=== PATIENT | female | born 1990 | race Caucasian/White ===

== ENCOUNTER → 2019-08-22 19:30 | Outpatient (CLI) | payer OTHER, SELFPAY | PROVIDERS: Visit Provider Physician Assistant | DX: J02.9 Acute pharyngitis, unspecified (principal) | CPT/HCPCS: 87070 ==

== ENCOUNTER 2019-09-07 15:15 | Emergency (ER) | payer OTHER, SELFPAY ==
[2019-09-07 15:35] VITALS: BP 137/86; PULSE 107; RESP 13; TEMP 36.9; O2SAT 98
--- NOTE | 2019-09-07 16:13 | DI.RAD.S_ITS ---
PROCEDURE: XR CHEST 2V INDICATIONS: cough x 5 weeks TECHNIQUE: 2 views of the chest were acquired. COMPARISON: None. FINDINGS: Surgical changes and devices: None. Lungs and pleura: Mildly increased focal vascular markings and bilateral hilar region are seen with mild bronchial wall thickening. No focal infiltrate. No pleural effusions or pneumothorax. Mediastinum: Mediastinal contours are normal. Heart size is normal. Bones and chest wall: No suspicious bony abnormalities. Soft tissues appear unremarkable. IMPRESSION: Suggestion of mild reactive airway disease. No focal infiltrate. Dictated by: Ronald Leonardo M.D. on 09/07/2019 at 17:03 Approved by: Ronald Leonardo M.D. on 09/07/2019 at 17:05
[2019-09-07 16:37] LABS: INR 0.9 (0.9-1.3); Prothrombin Time 10.3 SECONDS (10.1-12.7)
[2019-09-07 16:40] LABS: PTT Partial Thromboplastin Tim 32 SECONDS (26.4-36.2)
[2019-09-07 16:41] LABS: Creatine Kinase 43 U/L (30-135)
[2019-09-07 16:42] LABS: Alanine Aminotransferase 17 IU/L (<35); Albumin 4.5 g/dL (3.5-5.0); Albumin Globulin Ratio 1.6 (1.0-2.8); Alkaline Phosphatase 67 U/L (38-126); Aspartate Aminotransferase 22 IU/L (14-36); BUN Creatinine Ratio 17.1 (6-22); Bilirubin Total 0.4 mg/dL (0.2-1.3); Blood Urea Nitrogen 12 mg/dL (7-17); Calcium 9.5 mg/dL (8.4-10.2); Carbon Dioxide 28 mmol/L (22-32); Chloride 104 mmol/L (98-107); Estimated Glomerular Filt Rate > 60.0 mL/min (>60); Globulin 2.8 g/dL (1.7-4.1); Glucose 92 mg/dL (70-100); HEMOLYSIS < 15 (0-50); Sodium 141 mmol/L (137-145); Total Protein 7.3 g/dL (6.3-8.2)
[2019-09-07 16:48] LABS: B Type Natriuretic Peptide < 100 (<100); D Dimer < 200 ng/mL (<230)
[2019-09-07 16:54] LABS: Troponin I < 0.012 ng/mL (0.01-0.034)
[2019-09-07 16:57] LABS: Add Manual Diff / Slide Review NO; Basophils Absolute Auto 100 /uL (0-100); Basophils Percent Auto 0.7 % (0-2); Eosinophils Absolute Auto 200 /uL (0-450); Eosinophils Percent Auto 2.1 % (2-4); Hematocrit 38.7 % (36-46); Hemoglobin 13.1 g/dL (12.0-16.0); Lymphocytes Absolute Auto 2300 /uL (1100-4500); Lymphocytes Percent Auto 23.5 % (25-40); Mean Corpuscular Hemoglobin 30.6 PG (26-34); Mean Corpuscular Volume 90.1 fL (80-100); Monocytes Absolute Auto 700 /uL (0-900); Monocytes Percent Auto 7.6 % (3-14); Neutrophils Absolute Auto 6400 /uL (1500-7000); Neutrophils Percent Auto 66.1 % (50-75); Platelet Count 303 X10^3/uL (150-400); Red Blood Cell Count 4.29 X10^6/uL (4.0-5.2); Red Cell Distribution Width 13.3 % (11.6-14.8); White Blood Cell Count 9.7 X10^3/uL (4.5-11.0)
[2019-09-07 17:10] LABS: Influenza A - CEPHEID Flu A NEGATIVE (NEGATIVE); Influenza B - CEPHEID Flu B NEGATIVE (NEGATIVE)
[2019-09-07 17:44] LABS: Thyroid Stimulating Hormone 1.81 uIU/mL (0.47-4.68)
[2019-09-07 18:31] VITALS: PULSE 88; O2SAT 98
[2019-09-07] MEDS: ALBUTEROL 2.5 MG/3 ML NEB (ADULT) INH (18:31)
[2019-09-07 19:13] VITALS: BP 125/82
--- NOTE | 2019-09-07 19:29 | ED.CHESTPAIN ---
HPI - Chest Pain <SHANNAN Monaco- - Last Filed: 09/07/19 19:35> General Chief Complaint: Chest Pain Stated Complaint: short of breath, chest tightness, bilat arm heavin Time Seen by Provider: 09/07/19 15:56 Source: patient and family Mode of arrival: Ambulatory Limitations: no limitations History of Present Illness HPI narrative: The patient is a 29-year-old female nonsmoker who denies any history of asthma or COPD who presents with a chief complaint of shortness of breath, heavy arms, palpitations at home. She states that she has had a cough and illness for 4-5 weeks. She did tele health program, was started on antibiotics. Then she did not feel any better, so she went to the walk-in clinic. She completed a course of Augmentin, prednisone. She states she was also on amoxicillin prior, and given an inhaler. She states she used to have swollen throat, sore throat ear pain. Swollen sore throat and ear pain has improved greatly. She states she has tested negative for strep. She presents because she still has shortness of breath, new onset of heavy arms, and palpitations at home. She is concerned about her thyroid. She saw her PCP yesterday. She is having lab work drawn tomorrow. Related Data Home Medications Medication Instructions Recorded Confirmed No Known Home Medications 09/07/19 09/07/19 Allergies Allergy/AdvReac Type Severity Reaction Status Date / Time No Known Drug Allergies Allergy Unverified 08/22/19 18:43 Review of Systems <MAGAN Monaco - Last Filed: 09/07/19 19:35> Review of Systems Narrative: GENERAL: Denies chills, fatigue, malaise, fever, sweats. HEENT: Denies sinus pain, ear pain, sore throat, difficulty swallowing, dizziness. RESPIRATORY: See HPI CARDIOVASCULAR: See HPI GASTROINTESTINAL: Denies nausea, vomiting, abdominal pain, diarrhea, constipation, melena. : Denies dysuria, frequency, incontinence, hematuria, urinary retention. MUSCULOSKELETAL: denies weakness, joint pain, or bony pain SKIN: Denies rash, skin lesions, or other NEUROLOGIC: Denies weakness, headache, numbness, change in speech, confusion, seizures, incoordination. PSYCHIATRIC: No concerning psychosocial issues. 12 point review of systems is negative except for those stated above Patient History <DEYVI Monaco - Last Filed: 09/07/19 19:35> Social History Smoking Status: Never smoker Smoking Status: Never smoker Substance Use Type: does not use Exam <DEYVI Monaco - Last Filed: 09/07/19 19:35> Narrative Exam Narrative: GENERAL: This is a well-nourished, well-developed patient, in no acute distress HEAD: Atraumatic. Normocephalic. No temporal or scalp tenderness. EYES: Pupils equal round and reactive. Extraocular motions intact. No scleral icterus. No injection or drainage. ENT: Nose without bleeding, purulent drainage or septal hematoma. Throat without erythema, tonsillar hypertrophy or exudate. Uvula midline. Airway patent. NECK: Trachea midline. No JVD or lymphadenopathy. Supple, nontender, no meningeal signs. CARDIOVASCULAR: Regular rate and rhythm without murmurs, gallops, or rubs. RESPIRATORY: Dry cough on exam. Breath sounds course bilaterally bilaterally. No wheezes, rales, or rhonchi. No cough. No increased respiratory effort. No accessory muscle use. GASTROINTESTINAL: Abdomen soft, non-tender, nondistended. No hepato-splenomegaly, or palpable masses. No guarding. EXTREMITIES: No clubbing, cyanosis, or edema. No joint tenderness, effusion, or edema noted. BACK: Nontender without deformity or crepitance. No flank tenderness. NEURO: AOx3. SKIN: No rash or erythema on visible skin Initial Vital Signs Initial Vital Signs: Vital Signs Temperature 98.4 F 09/07/19 15:35 Pulse Rate 107 H 09/07/19 15:35 Respiratory Rate 13 09/07/19 15:35 Blood Pressure 137/86 09/07/19 15:35 Pulse Oximetry 98 09/07/19 15:35 <Donna Rodriguez MD - Last Filed: 09/07/19 19:36> Initial Vital Signs Initial Vital Signs: Vital Signs Temperature 98.4 F 09/07/19 15:35 Pulse Rate 107 H 09/07/19 15:35 Respiratory Rate 13 09/07/19 15:35 Blood Pressure 137/86 09/07/19 15:35 Pulse Oximetry 98 09/07/19 15:35 Scores <DEYVI Monaco - Last Filed: 09/07/19 19:35> GCS [place] coma scale eye opening: Spontaneous [place] coma scale verbal response: Orientated [place] coma scale motor response: Obey commands [place] coma scale total score: 15 Course <DEYVI Monaco - Last Filed: 09/07/19 19:35> Orders Ordered: ED Orders 09/07/19 16:13 XR chest 2V Stat 09/07/19 16:21 B Type Natriuretic Peptide Stat Complete Blood Count AUTO DIFF Stat Comprehensive Metabolic Panel Stat D Dimer Stat Partial Thromboplastin Time Stat Prothrombin Time INR Stat Thyroid Stimulating Hormone Stat Troponin & CK Cardiac Panel Stat 09/07/19 16:30 Influenza A & B (PCR) Stat 09/07/19 17:24 RT Consult Eval and Treat NOW Discontinued Medications Albuterol (Ventolin) 2.5 mg INH NOW ONE Stop: 09/07/19 17:30 Last Admin: 09/07/19 18:31 Dose: 2.5 mg Documented by: STHOMP Vital Signs Vital signs: Vital Signs - 8 hr 09/07/19 15:35 09/07/19 18:31 09/07/19 19:13 Temperature 98.4 F Pulse Rate 107 H 88 Respiratory Rate 13 Blood Pressure 137/86 125/82 Pulse Oximetry 98 98 <Donna Rodriguez MD - Last Filed: 09/07/19 19:36> Orders Ordered: ED Orders 09/07/19 16:13 XR chest 2V Stat 09/07/19 16:21 B Type Natriuretic Peptide Stat Complete Blood Count AUTO DIFF Stat Comprehensive Metabolic Panel Stat D Dimer Stat Partial Thromboplastin Time Stat Prothrombin Time INR Stat Thyroid Stimulating Hormone Stat Troponin & CK Cardiac Panel Stat 09/07/19 16:30 Influenza A & B (PCR) Stat 09/07/19 17:24 RT Consult Eval and Treat NOW Discontinued Medications Albuterol (Ventolin) 2.5 mg INH NOW ONE Stop: 09/07/19 17:30 Last Admin: 09/07/19 18:31 Dose: 2.5 mg Documented by: STHOMP Vital Signs Vital signs: Vital Signs - 8 hr 09/07/19 15:35 09/07/19 18:31 09/07/19 19:13 Temperature 98.4 F Pulse Rate 107 H 88 Respiratory Rate 13 Blood Pressure 137/86 125/82 Pulse Oximetry 98 98 MDM - Chest Pain <Nicki Hoffman, ENGINEERING PROGRAM ANALYST- - Last Filed: 09/07/19 19:35> Lab Data Result diagrams: 09/07/19 16:21 09/07/19 16:21 Labs: Lab Results 09/07/19 09/07/19 09/07/19 Range/Units 16:21 16:21 16:21 WBC 9.7 (4.5-11.0) X10^3/uL RBC 4.29 (4.0-5.2) X10^6/uL Hgb 13.1 (12.0-16.0) g/dL Hct 38.7 (36-46) % MCV 90.1 (80-100) fL MCH 30.6 (26-34) PG MCHC 34.0 (30-36) % RDW 13.3 (11.6-14.8) % Plt Count 303 (150-400) X10^3/uL Neut % (Auto) 66.1 (50-75) % Lymph % (Auto) 23.5 L (25-40) % Dillon % (Auto) 7.6 (3-14) % Eos % (Auto) 2.1 (2-4) % Baso % (Auto) 0.7 (0-2) % Neut # (Auto) 6400 (5464-7953) /uL Lymph # (Auto) 2300 (6145-8384) /uL Dillon # (Auto) 700 (0-900) /uL Eos # (Auto) 200 (0-450) /uL Baso # (Auto) 100 (0-100) /uL PT 10.3 (10.1-12.7) SECONDS INR 0.9 (0.9-1.3) APTT 32 (26.4-36.2) SECONDS D-Dimer < 200 (<230) ng/mL Sodium 141 (137-145) mmol/L Potassium 4.0 (3.4-5.1) mmol/L Chloride 104 (98-107) mmol/L Carbon Dioxide 28 (22-32) mmol/L BUN 12 (7-17) mg/dL Creatinine 0.70 (0.52-1.04) mg/dL Estimated GFR > 60.0 (>60) mL/min BUN/Creatinine Ratio 17.1 (6-22) Glucose 92 (70-100) mg/dL Calcium 9.5 (8.4-10.2) mg/dL Total Bilirubin 0.4 (0.2-1.3) mg/dL AST 22 (14-36) IU/L ALT 17 (<35) IU/L Alkaline Phosphatase 67 (38-126) U/L Total Creatine Kinase (30-135) U/L CK-MB (CK-2) CK-MB (CK-2) Rel Index Troponin I (0.01-0.034) ng/mL B-Natriuretic Peptide < 100 (<100) Total Protein 7.3 (6.3-8.2) g/dL Albumin 4.5 (3.5-5.0) g/dL Globulin 2.8 (1.7-4.1) g/dL Albumin/Globulin Ratio 1.6 (1.0-2.8) TSH (0.47-4.68) uIU/mL Influenza A (RT-PCR) (NEGATIVE) Influenza B (RT-PCR) (NEGATIVE) 09/07/19 09/07/19 09/07/19 Range/Units 16:21 16:21 16:30 WBC (4.5-11.0) X10^3/uL RBC (4.0-5.2) X10^6/uL Hgb (12.0-16.0) g/dL Hct (36-46) % MCV (80-100) fL MCH (26-34) PG MCHC (30-36) % RDW (11.6-14.8) % Plt Count (150-400) X10^3/uL Neut % (Auto) (50-75) % Lymph % (Auto) (25-40) % Dillon % (Auto) (3-14) % Eos % (Auto) (2-4) % Baso % (Auto) (0-2) % Neut # (Auto) (0256-8473) /uL Lymph # (Auto) (7910-3676) /uL Dillon # (Auto) (0-900) /uL Eos # (Auto) (0-450) /uL Baso # (Auto) (0-100) /uL PT (10.1-12.7) SECONDS INR (0.9-1.3) APTT (26.4-36.2) SECONDS D-Dimer (<230) ng/mL Sodium (137-145) mmol/L Potassium (3.4-5.1) mmol/L Chloride (98-107) mmol/L Carbon Dioxide (22-32) mmol/L BUN (7-17) mg/dL Creatinine (0.52-1.04) mg/dL Estimated GFR (>60) mL/min BUN/Creatinine Ratio (6-22) Glucose (70-100) mg/dL Calcium (8.4-10.2) mg/dL Total Bilirubin (0.2-1.3) mg/dL AST (14-36) IU/L ALT (<35) IU/L Alkaline Phosphatase (38-126) U/L Total Creatine Kinase 43 (30-135) U/L CK-MB (CK-2) TNP CK-MB (CK-2) Rel Index TNP Troponin I < 0.012 (0.01-0.034) ng/mL B-Natriuretic Peptide (<100) Total Protein (6.3-8.2) g/dL Albumin (3.5-5.0) g/dL Globulin (1.7-4.1) g/dL Albumin/Globulin Ratio (1.0-2.8) TSH 1.81 (0.47-4.68) uIU/mL Influenza A (RT-PCR) Flu a negative (NEGATIVE) Influenza B (RT-PCR) Flu b negative (NEGATIVE) Point of Care Testing Test Results Negative Urine Dip Bedside Urine Glucose Negative Bedside Urine Bilirubin - Negative Bedside Urine Ketone - Negative Urine Specific [place] 1.015 Bedside Urine Occult Blood - Negative Bedside Urine pH 6.0 Bedside Urine Protein - Negative Bedside Urine Urobilinogen - Negative Bedside Urine Nitrite - Negative Bedside Urine Leukocytes - Negative Esterase Imaging Data Chest x-ray: Radiologist's impression: [address] [address] XRay Report Signed Patient: Elda Bull EMR#: [id number] : 1990Acct:[id number] Age/Sex: 29 / FDate of Service: 09/07/19 Loc: ED Accession Number: [id number] Procedure: XR chest 2V Ordering Provider: Nicki Hoffman- PROCEDURE: XR CHEST 2V INDICATIONS: cough x 5 weeks TECHNIQUE: 2 views of the chest were acquired. COMPARISON: None. FINDINGS: Surgical changes and devices: None. Lungs and pleura: Mildly increased focal vascular markings and bilateral hilar region are seen with mild bronchial wall thickening. No focal infiltrate. No pleural effusions or pneumothorax. Mediastinum: Mediastinal contours are normal. Heart size is normal. Bones and chest wall: No suspicious bony abnormalities. Soft tissues appear unremarkable. IMPRESSION: Suggestion of mild reactive airway disease. No focal infiltrate. Dictated by: Ronald Leonardo M.D. on 09/07/2019 at 17:03 Approved by: Ronald Leonardo M.D. on 09/07/2019 at 17:05 [facility] Narrative Medical decision making narrative: The patient is a 29-year-old female who presents with a chief complaint of persistent cough, shortness of breath, chest pain and feeling of palpitations. She has sinus rhythm on EKG, chest x-ray shows no pneumonia. Her troponin is negative, feels though she is at low risk of ACS, given her age and low comorbidities. D-dimer is also negative at this point time. She saw her PCP yesterday, and I suggested that she needs to follow-up again with primary care provider. 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 Discussed at length that she needs further evaluation by her PCP, I discussed going back to the emergency department for any acute concerns. Patient has no questions or concerns upon discharge and states understanding of return precautions as well as follow-up care. <Donna Rodriguez MD - Last Filed: 09/07/19 19:36> Lab Data Labs: Lab Results 09/07/19 09/07/19 09/07/19 Range/Units 16:21 16:21 16:21 WBC 9.7 (4.5-11.0) X10^3/uL RBC 4.29 (4.0-5.2) X10^6/uL Hgb 13.1 (12.0-16.0) g/dL Hct 38.7 (36-46) % MCV 90.1 (80-100) fL MCH 30.6 (26-34) PG MCHC 34.0 (30-36) % RDW 13.3 (11.6-14.8) % Plt Count 303 (150-400) X10^3/uL Neut % (Auto) 66.1 (50-75) % Lymph % (Auto) 23.5 L (25-40) % Dillon % (Auto) 7.6 (3-14) % Eos % (Auto) 2.1 (2-4) % Baso % (Auto) 0.7 (0-2) % Neut # (Auto) 6400 (7284-3353) /uL Lymph # (Auto) 2300 (4905-8304) /uL Dillon # (Auto) 700 (0-900) /uL Eos # (Auto) 200 (0-450) /uL Baso # (Auto) 100 (0-100) /uL PT 10.3 (10.1-12.7) SECONDS INR 0.9 (0.9-1.3) APTT 32 (26.4-36.2) SECONDS D-Dimer < 200 (<230) ng/mL Sodium 141 (137-145) mmol/L Potassium 4.0 (3.4-5.1) mmol/L Chloride 104 (98-107) mmol/L Carbon Dioxide 28 (22-32) mmol/L BUN 12 (7-17) mg/dL Creatinine 0.70 (0.52-1.04) mg/dL Estimated GFR > 60.0 (>60) mL/min BUN/Creatinine Ratio 17.1 (6-22) Glucose 92 (70-100) mg/dL Calcium 9.5 (8.4-10.2) mg/dL Total Bilirubin 0.4 (0.2-1.3) mg/dL AST 22 (14-36) IU/L ALT 17 (<35) IU/L Alkaline Phosphatase 67 (38-126) U/L Total Creatine Kinase (30-135) U/L CK-MB (CK-2) CK-MB (CK-2) Rel Index Troponin I (0.01-0.034) ng/mL B-Natriuretic Peptide < 100 (<100) Total Protein 7.3 (6.3-8.2) g/dL Albumin 4.5 (3.5-5.0) g/dL Globulin 2.8 (1.7-4.1) g/dL Albumin/Globulin Ratio 1.6 (1.0-2.8) TSH (0.47-4.68) uIU/mL Influenza A (RT-PCR) (NEGATIVE) Influenza B (RT-PCR) (NEGATIVE) 09/07/19 09/07/19 09/07/19 Range/Units 16:21 16:21 16:30 WBC (4.5-11.0) X10^3/uL RBC (4.0-5.2) X10^6/uL Hgb (12.0-16.0) g/dL Hct (36-46) % MCV (80-100) fL MCH (26-34) PG MCHC (30-36) % RDW (11.6-14.8) % Plt Count (150-400) X10^3/uL Neut % (Auto) (50-75) % Lymph % (Auto) (25-40) % Dillon % (Auto) (3-14) % Eos % (Auto) (2-4) % Baso % (Auto) (0-2) % Neut # (Auto) (2534-6994) /uL Lymph # (Auto) (8873-3824) /uL Dillon # (Auto) (0-900) /uL Eos # (Auto) (0-450) /uL Baso # (Auto) (0-100) /uL PT (10.1-12.7) SECONDS INR (0.9-1.3) APTT (26.4-36.2) SECONDS D-Dimer (<230) ng/mL Sodium (137-145) mmol/L Potassium (3.4-5.1) mmol/L Chloride (98-107) mmol/L Carbon Dioxide (22-32) mmol/L BUN (7-17) mg/dL Creatinine (0.52-1.04) mg/dL Estimated GFR (>60) mL/min BUN/Creatinine Ratio (6-22) Glucose (70-100) mg/dL Calcium (8.4-10.2) mg/dL Total Bilirubin (0.2-1.3) mg/dL AST (14-36) IU/L ALT (<35) IU/L Alkaline Phosphatase (38-126) U/L Total Creatine Kinase 43 (30-135) U/L CK-MB (CK-2) TNP CK-MB (CK-2) Rel Index TNP Troponin I < 0.012 (0.01-0.034) ng/mL B-Natriuretic Peptide (<100) Total Protein (6.3-8.2) g/dL Albumin (3.5-5.0) g/dL Globulin (1.7-4.1) g/dL Albumin/Globulin Ratio (1.0-2.8) TSH 1.81 (0.47-4.68) uIU/mL Influenza A (RT-PCR) Flu a negative (NEGATIVE) Influenza B (RT-PCR) Flu b negative (NEGATIVE) Point of Care Testing Test Results Negative Urine Dip Bedside Urine Glucose Negative Bedside Urine Bilirubin - Negative Bedside Urine Ketone - Negative Urine Specific [place] 1.015 Bedside Urine Occult Blood - Negative Bedside Urine pH 6.0 Bedside Urine Protein - Negative Bedside Urine Urobilinogen - Negative Bedside Urine Nitrite - Negative Bedside Urine Leukocytes - Negative Esterase Discharge Plan Departure Patient Disposition: Home Clinical Impression: Breath shortness Discharge Date/Time: 09/07/19 19:13 Instructions: DI for Shortness of Breath, DI for Reactive Airway Disease-Adult Activity Restrictions/Additional Instructions: Please follow-up with primary care provider in the next few days Your chest x-ray shows no pneumonia, but is suggestive of reactive airway disease. However you react very poorly to albuterol. Please use at home if you need it... It is a smaller dose than the nebulizer we gave you today Your blood work is overall very well, with no signs of infection, heart attack, clot and a normal TSH Please come back to the emergency department for any acute concerns Prescriptions: No Action No Known Home Medications RF: 0 Referrals: Ollie Gerardo MD [Non-Staff] -
== END 2019-09-07 19:13 | disposition home or self-care (01) ==
PROVIDERS: Emergency Provider Nurse Practitioner Family
DX: R06.02 Shortness of breath (principal)
CPT/HCPCS: 36415; 71046; 80053; 81003; 81025; 82550; 83880; 84443; 84484; 85025; 85379; 85610; 85730; 87502; 93005; 93010; 94150; 94640; 99281; 99285; J7613

== ENCOUNTER → 2024-10-18 17:50 | Outpatient (CLI) | payer OTHER, SELFPAY ==
[2024-10-18 18:37] LABS: Influenza A - CEPHEID Flu A POSITIVE (NEGATIVE); Influenza B - CEPHEID Flu B NEGATIVE (NEGATIVE); Respiratory Syncytial Virus Negative (Negative)
[2024-10-18 18:39] LABS: COVID-19 CEPHEID 4-PLEX PCR POSITIVE (Negative)
== END ==
PROVIDERS: Visit Provider Nurse Practitioner Family
DX: R05.1 Acute cough (principal)
CPT/HCPCS: 0241U

== ENCOUNTER → 2024-12-18 14:12 | Outpatient (CLI) | payer OTHER, SELFPAY ==
[2024-12-18 14:42] LABS: Add Manual Diff / Slide Review NO; Basophils Absolute Auto 100 /uL (0-100); Basophils Percent Auto 0.9 % (0-2); Eosinophils Absolute Auto 200 /uL (0-450); Eosinophils Percent Auto 2.2 % (2-4); Hematocrit 38.1 % (36-46); Lymphocytes Absolute Auto 2400 /uL (1100-4500); Lymphocytes Percent Auto 25.1 % (25-40); Mean Corpuscular HGB Conc 34.2 % (30-36); Mean Corpuscular Hemoglobin 30.8 PG (26-34); Mean Corpuscular Volume 90.2 fL (80-100); Monocytes Absolute Auto 600 /uL (0-900); Neutrophils Absolute Auto 6300 /uL (1500-7000); Neutrophils Percent Auto 65.8 % (50-75); Platelet Count 310 X10^3/uL (150-400); Red Blood Cell Count 4.22 X10^6/uL (4.0-5.2); Red Cell Distribution Width 13.9 % (11.6-14.8); White Blood Cell Count 9.6 X10^3/uL (4.5-11.0)
[2024-12-18 16:37] LABS: Thyroid Stimulating Hormone 1.97 uIU/mL (0.47-4.68)
[2024-12-19 12:18] LABS: Hepatitis B Surface Antigen NEGATIVE s/c (NEGATIVE); Rubella Antibody IgG 73.4 IU/mL (>15)
[2024-12-19 12:35] LABS: HIV 1 & 2 Ab/Ag 4th Gen Combo NEGATIVE (NEGATIVE); Hep C Virus Ab w/Reflex Quant NEGATIVE s/c (NEGATIVE)
== END ==
LOC: LAB 14:13
PROVIDERS: PCP Family Medicine; Referring Provider Obstetrics & Gynecology; Visit Provider Obstetrics & Gynecology
DX: Z34.80 Encounter for supervision of other normal pregnancy, unspecified trimester (principal)
CPT/HCPCS: 36415; 80055; 84439; 84443; 86787; 86803; 86850; 86900; 86901; 87086; 87389

== ENCOUNTER → 2024-12-19 11:51 | Outpatient (CLI) | payer OTHER, SELFPAY ==
[2024-12-19 13:56] LABS: HEMOLYSIS < 15 (0-50); Iron 102 ug/dL (37-170)
[2024-12-19 14:08] LABS: Percent Iron Saturation 31 % (15-50); Total Iron Binding Capacity 324 ug/dL (265-497); Transferrin 285 mg/dL (206-381)
[2024-12-19 14:29] LABS: Ferritin 37 ng/mL (6-137)
== END ==
PROVIDERS: PCP Family Medicine; Referring Provider Family Medicine; Visit Provider Family Medicine
DX: R53.83 Other fatigue (principal); R68.89 Other general symptoms and signs; Z86.2 Personal history of diseases of the blood and blood-forming organs and certain disorders involving the immune mechanism
CPT/HCPCS: 36415; 82728; 83540; 83550

== ENCOUNTER → 2025-01-19 11:32 | Outpatient (CLI) | payer OTHER, SELFPAY ==
[2025-01-19 13:08] LABS: Natera Collection Specimen Collected
== END ==
PROVIDERS: PCP Family Medicine; Referring Provider Obstetrics & Gynecology; Visit Provider Obstetrics & Gynecology
DX: Z34.81 Encounter for supervision of other normal pregnancy, first trimester (principal); Z3A.12 12 weeks gestation of pregnancy
CPT/HCPCS: 36415

== ENCOUNTER → 2025-02-16 10:40 | Outpatient (CLI) | payer OTHER, SELFPAY ==
[2025-02-19 14:11] LABS: AFP Value 31.9 ng/mL (.); Gest Age on Col Date 16.7 weeks (.); Insulin Dep Diabetes No (.); OSBR Risk 1IN 10000 (.); Results Report (.); Test Results *Screen Negative* (.)
== END ==
PROVIDERS: Obstetrics & Gynecology; PCP Family Medicine; Referring Provider Family Medicine; Visit Provider Emergency Medicine
DX: Z34.80 Encounter for supervision of other normal pregnancy, unspecified trimester (principal); Z3A.16 16 weeks gestation of pregnancy
CPT/HCPCS: 36415; 82105

== ENCOUNTER → 2025-03-13 11:13 | Outpatient (CLI) | payer OTHER, SELFPAY ==
--- NOTE | 2025-03-13 11:15 | DI.US.S_ITS ---
PROCEDURE: US OB >= 14 WEEKS FETUS INDICATIONS: 20 week anatomy scan OUTSIDE/PRIOR DATING DATA: The calculations are made using the working [facility]ON of 07/28/25. TECHNIQUE: Real-time scanning was performed of the fetus, with image documentation and biometric measurements. Endovaginal scanning: Not performed COMPARISON: None. FINDINGS: General: A single living intrauterine gestation is present. Presentation: Transverse, head to maternal left. Placenta: Placental position is posterior , without previa. Amniotic fluid index: 17.2 cm, normal range is 5-24 cm. Single deepest vertical pocket is 5.5 cm. heart rate: 147 beats per minute. Maternal cervical canal: Closed and 3.9 cm long. Normal lower limit is 2.5 cm. biometrics: Biparietal diameter: 4.7 cm, 20 weeks two days Head circumference: 17.4 cm, 20 weeks 0 days Abdominal circumference: 16.2 cm, 21 weeks two days Femur length: 3.2 cm, 20 weeks 0 days Clinically estimated gestational age: 20 weeks three days Composite gestational age from present scan: 20 weeks three days Estimated weight and percentile: 367 g, 57th percentile Anatomic survey: Neuro: Ventricles are non-dilated at less than 10 mm. Cisterna magna is normal at 3-11 mm. Cerebellum is normal in size and morphology. Nuchal skin fold: Normal at less than 6 mm between 14-21 weeks gestational age. Face: Nose and lips, facial profile are normal. Spine: No evidence for spina bifida. Heart: 4-chambered heart is present, with normal left ventricular outflow tract. Right ventricular outflow tract image not obtainable due to position and motion. Diaphragm: Diaphragm is intact. Stomach: Left-sided stomach is present. Kidneys: No hydronephrosis. Normal is less than 5 mm in 2nd trimester, less than 7 mm in 3rd trimester. Cord: 3-vessel cord has orthotopic insertion. Bladder: Normal in size. Extremities: All 4 extremities identified. IMPRESSION: Single live intrauterine with estimated weight at the 57th percentile. Composite gestational age concordant with clinical gestational age. Symmetric growth. Right ventricular cardiac outflow tract not well seen due to position. Recommend short interval follow-up. Otherwise normal anatomy. Closed cervix and normal amniotic fluid volume. Posterior placenta. We strive to produce accurate, complete, and clear reports of imaging services. To assist us in improving patient care, this report was composed using standard report templates and voice recognition software. Therefore, it may contain abnormal punctuation, insertions and/or omissions. Occasional wrong-word or sound-alike substitutions may occur. Though we review the report and make efforts to correct it, we do recommend that the report be read carefully in proper context to recognize any text inaccuracies. Dictated by: Faith Jackson M.D. on 03/14/2025 at 13:26 Approved by: Faith Jackson M.D. on 03/14/2025 at 13:30
== END ==
PROVIDERS: PCP Family Medicine; Referring Provider Obstetrics & Gynecology; Visit Provider Obstetrics & Gynecology
DX: Z34.82 Encounter for supervision of other normal pregnancy, second trimester (principal); Z3A.20 20 weeks gestation of pregnancy
CPT/HCPCS: 76811

== ENCOUNTER → 2025-04-17 10:00 | Outpatient (CLI) | payer OTHER, SELFPAY ==
[2025-04-17 12:14] LABS: Add Manual Diff / Slide Review NO; Hematocrit 34.2 % (36-46); Hemoglobin 11.9 g/dL (12.0-16.0); Lymphocytes Absolute Auto 1600 /uL (1100-4500); Mean Corpuscular HGB Conc 34.7 % (30-36); Mean Corpuscular Hemoglobin 31.6 PG (26-34); Mean Corpuscular Volume 90.9 fL (80-100); Platelet Count 236 X10^3/uL (150-400)
[2025-04-17 12:40] LABS: GTT (PREG) 1 Hour PP 50gm Dose 91 mg/dL (76-139)
[2025-04-18 10:36] LABS: Rubeola Measles IgG > 300.0 AU/mL (Immune >16.4)
== END ==
PROVIDERS: Family Provider Family Medicine; PCP Family Medicine; Referring Provider Obstetrics & Gynecology; Visit Provider Obstetrics & Gynecology
DX: Z34.80 Encounter for supervision of other normal pregnancy, unspecified trimester (principal); Z3A.26 26 weeks gestation of pregnancy
CPT/HCPCS: 36415; 82950; 85025; 86735; 86762; 86765

== ENCOUNTER 2025-06-11 17:08 | Outpatient (CLI) | payer OTHER, SELFPAY ==
[2025-06-11 17:28] LABS: Appearance Urine UA SL CLOUDY; Bilirubin Urine UA NEGATIVE (NEGATIVE); Color Urine UA YELLOW; Glucose Urine UA NEGATIVE (Negative); Ketones Urine UA NEGATIVE (NEGATIVE); Leukocyte Esterase Urine UA 2+ (NEGATIVE); Nitrite Urine UA NEGATIVE (Negative); Occult Blood Urine UA NEGATIVE (Negative); Protein Urine UA NEGATIVE (Negative); Specific Gravity Urine UA 1.015 (1.000-1.035); Urobilinogen Urine UA 0.2 E.U./dL (0.2)
[2025-06-11 17:49] LABS: pH Urine UA 6.5 (4.5-8.0)
[2025-06-11 18:17] LABS: Culture Indicated Urine Specimen Cultured
== END 2025-06-11 18:30 | disposition home or self-care (01) ==
LOC: OB 06-12 13:54
PROVIDERS: Obstetrics & Gynecology; Family Provider Family Medicine; PCP Family Medicine; Visit Provider Obstetrics & Gynecology
DX: O26.23 Pregnancy care for patient with recurrent pregnancy loss, third trimester (principal); Z3A.33 33 weeks gestation of pregnancy
CPT/HCPCS: 59025; 81001; 87086; G0378; G0379

== ENCOUNTER 2025-06-15 10:42 | Observation (INO) | payer OTHER, SELFPAY ==
[2025-06-15] MEDS: ONDANSETRON 8 MG in SODIUM CHLORIDE 0.9% 50 ML 216 MG IV (11:35)
[2025-06-15] MEDS: LACTATED RINGERS 1,000 ML 1000 ML IV (11:36)
[2025-06-15 11:49] LABS: Add Manual Diff / Slide Review NO; Hematocrit 33.2 % (36-46); Hemoglobin 11.4 g/dL (12.0-16.0); Lymphocytes Absolute Auto 1000 /uL (1100-4500); Mean Corpuscular HGB Conc 34.2 % (30-36); Mean Corpuscular Hemoglobin 30.6 PG (26-34); Mean Corpuscular Volume 89.6 fL (80-100); Platelet Count 213 X10^3/uL (150-400)
[2025-06-15 11:52] LABS: Alanine Aminotransferase 21 IU/L (<35); Albumin 3.9 g/dL (3.5-5.0); Albumin Globulin Ratio 1.2 (1.0-2.8); Alkaline Phosphatase 106 U/L (38-126); Blood Urea Nitrogen 6 mg/dL (7-17); Calcium 8.6 mg/dL (8.4-10.2); Carbon Dioxide 20 mmol/L (22-32); Chloride 105 mmol/L (98-107); Estimated Glomerular Filt Rate > 60 mL/min (>60); Globulin 3.2 g/dL (1.7-4.1); Glucose 86 mg/dL (70-99); HEMOLYSIS < 15 (0-50); Potassium 4.0 mmol/L (3.4-5.1); Sodium 133 mmol/L (137-145); Total Protein 7.1 g/dL (6.3-8.2)
[2025-06-15 12:23] LABS: Appearance Urine UA CLEAR; Bilirubin Urine UA NEGATIVE (NEGATIVE); Color Urine UA YELLOW; Glucose Urine UA NEGATIVE (Negative); Ketones Urine UA NEGATIVE (NEGATIVE); Leukocyte Esterase Urine UA 1+ (NEGATIVE); Nitrite Urine UA NEGATIVE (Negative); Occult Blood Urine UA NEGATIVE (Negative); Protein Urine UA TRACE (Negative); Specific Gravity Urine UA 1.015 (1.000-1.035); Urobilinogen Urine UA 1.0 E.U./dL (0.2)
[2025-06-15] MEDS: DEXTROSE 5%-LACTATED RINGERS 1,000 ML 100 ML IV (12:23)
[2025-06-15 12:26] LABS: pH Urine UA 7.0 (4.5-8.0)
[2025-06-15 12:34] LABS: Culture Indicated Urine Specimen Cultured
[2025-06-15 13:04] LABS: Influenza A - CEPHEID Flu A NEGATIVE (NEGATIVE); Influenza B - CEPHEID Flu B NEGATIVE (NEGATIVE)
[2025-06-15 13:06] LABS: COVID-19 CEPHEID 4-PLEX PCR POSITIVE (Negative)
== END 2025-06-15 13:47 | disposition home or self-care (01) ==
PROVIDERS: Admitting Provider Obstetrics & Gynecology; Family Provider Family Medicine; PCP Family Medicine; Referring Provider Obstetrics & Gynecology; Visit Provider Obstetrics & Gynecology
DX: O26.893 Other specified pregnancy related conditions, third trimester (principal); Z3A.33 33 weeks gestation of pregnancy
CPT/HCPCS: 36415; 59025; 59050; 80053; 81001; 85025; 87086; 87637; 96360; G0378; G0379; J2405; J7121

== ENCOUNTER 2025-06-25 16:36 | Outpatient (CLI) | payer OTHER, SELFPAY ==
[2025-06-25 17:13] LABS: Add Manual Diff / Slide Review NO; Hematocrit 32.2 % (36-46); Hemoglobin 11.1 g/dL (12.0-16.0); Lymphocytes Absolute Auto 1600 /uL (1100-4500); Mean Corpuscular HGB Conc 34.5 % (30-36); Mean Corpuscular Hemoglobin 30.7 PG (26-34); Mean Corpuscular Volume 89.0 fL (80-100); Platelet Count 228 X10^3/uL (150-400)
[2025-06-25 17:26] LABS: Alanine Aminotransferase 15 IU/L (<35); Albumin 3.7 g/dL (3.5-5.0); Albumin Globulin Ratio 1.2 (1.0-2.8); Alkaline Phosphatase 105 U/L (38-126); Blood Urea Nitrogen 11 mg/dL (7-17); Calcium 9.2 mg/dL (8.4-10.2); Carbon Dioxide 23 mmol/L (22-32); Chloride 106 mmol/L (98-107); Estimated Glomerular Filt Rate > 60 mL/min (>60); Globulin 3.2 g/dL (1.7-4.1); Glucose 90 mg/dL (70-99); HEMOLYSIS < 15 (0-50); Potassium 4.3 mmol/L (3.4-5.1); Sodium 134 mmol/L (137-145); Total Protein 6.9 g/dL (6.3-8.2); Uric Acid 3.1 mg/dL (2.5-6.2)
[2025-06-25 17:29] LABS: Protein (Total) Urine Random 16 mg/dL (0-12); Protein Creatinine Ratio Urine 0.12 GRAM/24H
== END 2025-06-25 17:44 | disposition home or self-care (01) ==
LOC: OB 06-26 07:23
PROVIDERS: Family Provider Family Medicine; PCP Family Medicine; Referring Provider Obstetrics & Gynecology; Visit Provider Obstetrics & Gynecology
DX: O16.3 Unspecified maternal hypertension, third trimester (principal); Z3A.35 35 weeks gestation of pregnancy
CPT/HCPCS: 59025; 80053; 84550; 85025; G0378; G0379

== ENCOUNTER 2025-06-27 15:12 | Outpatient (CLI) | payer OTHER, SELFPAY | END 2025-06-27 16:11 | disposition home or self-care (01) | LOC: LABOR 15:21 → OB 06-28 09:37 | PROVIDERS: Family Provider Family Medicine; PCP Family Medicine; Referring Provider Obstetrics & Gynecology; Visit Provider Obstetrics & Gynecology | DX: O26.893 Other specified pregnancy related conditions, third trimester (principal); R03.0 Elevated blood-pressure reading, without diagnosis of hypertension; Z3A.35 35 weeks gestation of pregnancy | CPT/HCPCS: 59025; 76815; G0378; G0379 ==

== ENCOUNTER → 2025-07-04 10:09 | Outpatient (CLI) | payer OTHER, SELFPAY | PROVIDERS: Family Provider Family Medicine; PCP Family Medicine; Visit Provider Obstetrics & Gynecology | DX: Z34.83 Encounter for supervision of other normal pregnancy, third trimester (principal); R82.998 Other abnormal findings in urine | CPT/HCPCS: 87086; 87653 ==

== ENCOUNTER → 2025-07-17 12:13 | Outpatient (CLI) | payer OTHER, SELFPAY ==
--- NOTE | 2025-07-17 12:13 | DI.US.S_ITS ---
PROCEDURE: US OB FOLLOW UP INDICATIONS: LGA on 07/14 scan, borderline hydramnios OUTSIDE/PRIOR DATING DATA: The calculations are made using the working J[facility]ON of 07/28/25. TECHNIQUE: Real-time scanning was performed of the fetus, with image documentation and biometric measurements. Endovaginal scanning: No COMPARISON: [facility], , OB FOLLOW UP, 05/09/2025, 11:08. FINDINGS: General: A single living intrauterine gestation is present. Presentation: Vertex. Placenta: Placental position is right posterior, and fundal , without previa. Amniotic fluid index: 18.7 cm, normal range is 5-24 cm. Single deepest vertical pocket is 7.5 cm. heart rate: 137 beats per minute. Maternal cervical canal: Not well seen biometrics: Biparietal diameter: 9.7 cm, 39 weeks six days Head circumference: 34.5 cm, 39 weeks six days Abdominal circumference: 36.8 cm, 40 weeks five days Femur length: 7.7 cm, 39 weeks four days Clinically estimated gestational age: 38 weeks three days Composite gestational age from present scan: 40 weeks 0 days Estimated weight and percentile: 4035 g, 95th percentile IMPRESSION: Single living intrauterine with estimated weight at the 95th percentile, large for gestational age. Composite gestational age one week and four days ahead of the expected gestational age. Symmetric growth. Normal amniotic fluid volume. We strive to produce accurate, complete, and clear reports of imaging services. To assist us in improving patient care, this report was composed using standard report templates and voice recognition software. Therefore, it may contain abnormal punctuation, insertions and/or omissions. Occasional wrong-word or sound-alike substitutions may occur. Though we review the report and make efforts to correct it, we do recommend that the report be read carefully in proper context to recognize any text inaccuracies. Dictated by: Faith Jackson M.D. on 07/18/2025 at 8:43 Approved by: Faith Jackson M.D. on 07/18/2025 at 8:46
== END ==
LOC: US 12:13
PROVIDERS: Family Provider Family Medicine; PCP Family Medicine; Referring Provider Obstetrics & Gynecology; Visit Provider Obstetrics & Gynecology
DX: O40.3XX0 Polyhydramnios, third trimester, not applicable or unspecified (principal); O36.63X0 Maternal care for excessive fetal growth, third trimester, not applicable or unspecified; Z3A.40 40 weeks gestation of pregnancy
CPT/HCPCS: 76816

== ENCOUNTER 2025-07-26 19:59 | Inpatient (IN) | payer OTHER, SELFPAY ==
[2025-07-26 21:14] LABS: Add Manual Diff / Slide Review NO; Hematocrit 33.3 % (36-46); Hemoglobin 11.2 g/dL (12.0-16.0); Lymphocytes Absolute Auto 1900 /uL (1100-4500); Mean Corpuscular HGB Conc 33.5 % (30-36); Mean Corpuscular Hemoglobin 29.8 PG (26-34); Mean Corpuscular Volume 89.0 fL (80-100); Platelet Count 211 X10^3/uL (150-400)
[2025-07-26 21:38] VITALS: BP 129/66
[2025-07-26] MEDS: FAMOTIDINE 20 MG TABLET PO (21:47)
--- NOTE | 2025-07-27 08:13 | PM.OBHP.IH.1 ---
OB HPI Date/Time Date of admission: 07/26/25 Date Patient Seen: 07/27/25 Time Patient Seen: 07:45 History of Present Condition Chief complaint: Induction, LGA fetus JHON Calculator Estimated Delivery Date Method Current WG Current Estimate 07/28/25 Conception 39w 6d Other Estimates 07/29/25 LMP (Certain) 39w 5d Estimated Gestational Age (weeks): 39w6d : 4 Para: 0 Narrative: IUI 11/04/24 care: good care Dating criteria OB: LMP confirmed by 1st trimester US Ultrasounds: normal 1st trimester US and normal mid trimester US Abnormal ultrasound findings: Borderline polyhydramnios (resolved) LGA fetus 4035g/95th% at 38w3d Obstetrical complications: none Medical complications OB: none Indications Indication for induction OB: other (ART , LGA fetus ) Preadmission Labs Last OB Lab Results: Blood Type B Positive 07/26/25, 20:53 Antibody Screen Negative 07/26/25, 20:53 Hct, (36-46) 33.3 % L 07/26/25, 20:53 Hgb, (12.0-16.0) 11.2 g/dL L 07/26/25, 20:53 Hep Bs Antigen, (NEGATIVE) Negative s/c 12/18/24, 14:18 Hepatitis C Antibody, (NEGATIVE) Negative s/c 12/18/24, 14:18 Rubella Antibody, (>15) 51.0 IU/mL 04/17/25, 11:15 VZV IgG Antibody, (Non Reactive) Reactive 12/18/24, 14:18 Glucose 1 Hr 50 gm, (76-139) 91 mg/dL 04/17/25, 11:15 Group B Strep (PCR) Pos for grp b strep H 07/04/25, 10:09 -: Chlamydia screen: negative, Gonorrhea screen: negative and Urine: negative -: PAP smear: Normal Genetic Screens: Cell-free DNA: Normal and Alpha-fetoprotein: Normal External Labs -: Urine: negative Prior (ies) Past Pregnancies Del. Date GA/Weeks Labor Lgth Wt Sex Route Outcome Anesthesia Place Delv Breastfeed Preg Comp Name 12/19/12 5-6 elective 06/20/16 5-6 elective 12/19/23 5-6 spontaneous Delivery Date: 12/19/12 Last Updated by: Josefina Reyez RN Rx only, no complications Delivery Date: 06/20/16 Last Updated by: Josefina Reyez RN Rx only, no complications Delivery Date: 12/19/23 Last Updated by: Josefina Reyez RN passed spontaneously, no complications Hx # Term Pregnancies: 0 Spontaneous abortions: 1 Elective abortions: 2 Evaluation Evaluation Baseline heart rate: 140 Variability: Moderate (6-25) monitor accelerations: Present Monitor Decelerations: Absent Uterine Contraction Intensity: Mild Category of Tracing: Reactive Status: Category l Dilation (cm): 0 Effacement (%): 50 Dilation: Closed Effacement: 40-50% station: -3 Position of cervix: mid Consistency: soft [place] score: 4 PFSH Medical History (Updated 07/11/25 @ 11:12 by Mark Kang MD) Pelvic floor dysfunction in female Painful menstrual periods (~2019) Infertility (~2020) Vasovagal syncope Neuropathy Migraines Surgical History (Updated 11/20/24 @ 11:49 by Josefina Reyez RN) History of removal of skin mole Family History (Updated 11/20/24 @ 12:01 by Josefina Reyez RN) Grandfather Seizure disorder Skin cancer (melanoma) Stroke Grandmother Congestive heart failure Dementia Grandfather Heart attack Grandmother Alcoholism Mother Age: 68 Anxiety Osteoporosis Father Age: 67 Anxiety Cataracts, bilateral Depression Enlarged prostate Brother Age: 36 Anxiety Depression PTSD (post-traumatic stress disorder) Aunt Skin cancer Uncle Skin cancer Uncle Diabetes mellitus Skin cancer Uncle Cancer Aunt Migraine Aunt Multiple sclerosis Uncle Skin cancer Uncle Cancer Social History marital status: number of children: 0 household members: spouse lives independently: Yes caregiver/support person: No housing: house pets and animals: Yes (dogs, cat) education level: college (bachelor's degree) occupational status: previously employed current occupational exposures/hazards: No special cuauhtemoc needs: No travel history: recent (domestic only) seatbelt use: always water heater temp set < 120 deg: Yes working smoke detector in home: Yes fire extinguisher in home: Yes carbon monox detector in home: Yes firearms in home: Yes firearms unloaded and locked: Yes do you feel safe at home: Yes Smoking Status: Never smoker second hand exposure: No alcohol intake: former (occasionally when not ) substance use type: marijuana (not recently, not planning to use again in the foreseeable future) during the past year weight has: remained stable well-balanced diet: rarely or never daily servings fruits/ve-1 (1-2) caffeine: Yes (decaf coffee) Type(s) of exercise: walking and other (hiking) Meds Home Medications and Allergies Home Medications ?Medication ?Instructions ?Recorded ?Confirmed ?Type cholecalciferol (vitamin D3) 25 25 mcg PO DAILY 11/20/24 07/26/25 History mcg (1,000 unit) capsule omega-3 fatty acids 300 mg-fish 1 cap PO DAILY 11/20/24 07/18/25 History oil 400 mg capsule (Fish Oil Pearls) HDL-ukpr-[id number]-omega 3 fatty no.1 27 cap PO 12/19/24 07/18/25 History mg-1 mg-300 mg capsule famotidine 20 mg tablet 20 mg PO BID #60 tabs 07/03/25 07/26/25 Rx Allergies Allergy/AdvReac Type Severity Reaction Status Date / Time grapefruit Allergy Intermediate Hives Verified 07/26/25 21:19 Review of Systems Review of Systems ROS: Yes All systems reviewed with the patient and are negative except as otherwise documented OB Exam Vital signs Blood Pressure: 114/79 Pulse Rate: 74 Respiratory Rate: 18 Temperature: 97.0 F HENMT Head: normal to inspection Resp Effort & Inspection: normal respiratory effort and able to speak in complete sentences Cardio Rate: regular rate Extremities Lower extremity: Yes normal to inspection and edema Laterality: bilateral edema degree: 1+ GI Inspection: normal to inspection Other: gravid, chelsy cephalic 8# Speculum Exam - Vagina: Yes normal appearance of the vagina Objective Labs 07/26/25 20:53 Labs: Laboratory Results - last 24 hr 07/26/25 20:53 WBC 10.5 RBC 3.74 L Hgb 11.2 L Hct 33.3 L MCV 89.0 MCH 29.8 MCHC 33.5 RDW 14.3 Plt Count 211 Neut % (Auto) 73.0 Lymph % (Auto) 17.6 L [place] % (Auto) 7.4 Eos % (Auto) 1.3 L Baso % (Auto) 0.7 Neut # (Auto) 7700 H Lymph # (Auto) 1900 [place] # (Auto) 800 Eos # (Auto) 100 Baso # (Auto) 100 Blood Type B Positive Antibody Screen Negative Assessment and Plan Assessment and Plan Assessment and Plan narrative: 35yo at 39w6d by IUI dating admitted for overnight cervical ripening, indicated IOL at term in setting of suspected macrosomia IOL miso x3 overnight interval SVE without appreciable cervical dilation cont CEFM/toco, encourage ambulation, cont miso per protocol, plan interval SVE 4-6h with attempt at cervical balloon placement pending response Suspected macrosomia 1h OGTT wnl, borderline polyhydramnios at 29wga resolved, last EFW 4035g on 07/17/25 (38w3d) continue present management, low threshold to convert to per patient request if concerns for obstructed labor patient is consented for vaginal, vaginal operative and delivery as well as transfusion of blood products as medically indicated Time-Based Coding :: [TOTAL MINUTES] spent with patient and on the chart (including review of chart, obtaining history, exam, reviewing outside data, placing orders, documenting exam and treatment plan, and counseling patient) on [DATE].
[2025-07-27] MEDS: FAMOTIDINE 20 MG TABLET PO ×2 (10:05→21:00)
[2025-07-27 10:38] VITALS: BP 114/79; PULSE 74; RESP 18; TEMP 36.1
--- NOTE | 2025-07-27 12:10 | PM.OBPNLAB ---
Date/Time Date Patient Seen: 07/27/25 Time Patient Seen: 12:10 Pain Control Pain control: tolerating well Comments: s/p 5th dose misoprostol at 10:00 Pelvic Exam Dilation (cm): 2 Effacement (%): 70 station: -3 Amniotic membrane status: Intact Comments: interval cervical dilation Contractions Contractions on admission: none Monitor mode: Palpation Contraction frequency (min): 5 Contraction pattern: Irregular Contraction intensity: Mild Status status: Category l Heart Rate Baseline: 140 Monitor Accelerations: Present Monitor Decelerations: Absent Monitor Variability: Moderate Comments: cat 1 Assessment and Plan Assessment: induction ongoing Comments: start IV pitocin, titrate to pattern cont CEFM/toco
[2025-07-27] MEDS: LACTATED RINGERS 1,000 ML 100 ML IV ×2 (12:35→19:36)
[2025-07-27] MEDS: OXYTOCIN PREMIX 30 UNIT/500 ML PLAST..BAG IV (14:05)
[2025-07-27] MEDS: ONDANSETRON 4 MG/2 ML INJ IV (14:05)
--- NOTE | 2025-07-27 19:18 | PM.AN.REGBLK ---
Regional Block Pre-procedure Procedure: Continuous Lumbar Epidural for L&D Attending OB provider: Mark Kang Hx: No personal or family history of anesthesia problems. PSH/Anesthesia history narrative: none Exam narrative: BP 122/70 HR 96 O2 99% ASA Class: II Labs: Hct 33.3 % (36-46) L 07/26/25 20:53 Plt Count 211 X10^3/uL (150-400) 07/26/25 20:53 Medications: Current Medications Generic Name Dose Route Start Last Admin Trade Name Freq PRN Reason Stop Dose Admin Calcium Carbonate 1,000 mg 07/26/25 21:00 Calcium Carbonate 500 Mg Tab PO Q2HR PRN Dyspepsia Carboprost Tromethamine 250 mcg 07/26/25 21:00 Carboprost 250 Mcg/Ml Ampul IM Q90M PRN Bleeding Famotidine 20 mg 07/26/25 21:30 07/27/25 10:05 Famotidine 20 Mg Tablet PO 20 mg BID KAREN Administration Fentanyl 50 mcg 07/26/25 21:00 Fentanyl 100 Mcg/2 Ml Inj IV Q1H PRN Pain, Moderate (4-6) Oxytocin/Lactated Ringer's 30 unit in 500 mls @ 200 mls/hr 07/26/25 21:00 Oxytocin Premix IV CONT PRN Bleeding Protocol Tranexamic Acid 1,000 mg/ 100 mls @ 600 mls/hr 07/26/25 21:00 Sodium Chloride IV NOW PRN Bleeding Oxytocin/Lactated Ringer's 30 unit in 500 mls @ 2 mls/hr 07/26/25 21:00 07/27/25 14:05 Oxytocin Premix IV 2 milliunit/min TITRATE KAREN 2 mls/hr Protocol Administration 2 MILLIUNIT/MIN Lidocaine HCl 20 ml 07/26/25 21:00 Lidocaine 1% 20 Ml INJ INTRA-OP PRN Post Delivery Methylergonovine Maleate 0.2 mg 07/26/25 21:00 Methylergonovine 0.2 Mg Tablet PO Q6HR PRN Heavy Bleeding Methylergonovine Maleate 0.2 mg 07/26/25 21:00 Methylergonovine 0.2 Mg/Ml Vial IM NOW PRN Bleeding Mineral Oil 30 ml 07/26/25 21:00 Mineral Oil 30 Ml Udc TOP PRN PRN Version Misoprostol 800 mcg 07/26/25 21:00 Misoprostol 200 Mcg Tablet IN NOW PRN Bleeding Misoprostol 400 mcg 07/26/25 21:00 Misoprostol 200 Mcg Tablet SL NOW PRN Bleeding Misoprostol 50 mcg 07/26/25 21:00 07/27/25 10:05 Misoprostol 25 Mcg Tablet PO 50 mcg Q4H PRN Administration cervical ripening Naloxone HCl 0.2 mg 07/26/25 21:00 Naloxone 0.4 Mg/Ml Vial IV Q2MIN PRN Opiate Reversal Ondansetron HCl 4 mg 07/26/25 21:00 07/27/25 14:05 Ondansetron 4 Mg/2 Ml Inj IV 4 mg Q4HR PRN Administration Nausea And Vomiting Oxytocin 10 unit 07/26/25 21:00 Oxytocin 10 Unit/Ml Vial IM NOW PRN Bleeding Zolpidem Tartrate 5 mg 07/26/25 21:00 Zolpidem 5 Mg Tablet PO BEDTIME PRN Sleep Allergies: Allergies Allergy/AdvReac Type Severity Reaction Status Date / Time grapefruit Allergy Intermediate Hives Verified 07/26/25 21:19 --: called at 0406, pt has increased pain, mainly on R side. pushing button with little relief. Bolus given 5 mL .25% marcaine, 5cc NaCl, 20 mcg precedex Procedure Insertion date: 07/27/25 Insertion time: 18:46 Prep/Local: 1% lidocaine (PREP: HCG) Interspace: L4/5 Patient position: sitting Loss of resistance with: saline ELIZABETH at (cm): 7 Catheter placed at SKIN (cm): 12 Insertion: No CSF, No Blood, No Paresthesia with insertion, No Paresthesia with injection and No Test dose reaction Initial Medications TEST DOSE time: 18:47 BOLUS DOSE time: 01:45 BOLUS DOSE (mL): 5 BOLUS DOSE med: 0.25% bupivacaine Infusion INFUSION: 0.125% bupivacaine and with fentanyl 2 mcg/mL Initial rate (mL/hr): 10 Subsequent interventions: increased to 12 ml/Hr at 0200 Post-procedure Anesthesia date START: 07/27/25 Anesthesia time START: 18:29
[2025-07-27] MEDS: AMPICILLIN 2,000 MG in SODIUM CHLORIDE 0.9% 100 ML 200 MG IV (19:24)
[2025-07-27] MEDS: CALCIUM CARBONATE 500 MG TAB 1000 MG PO (21:39)
[2025-07-27] MEDS: diphenhydrAMINE 50 MG/ML VIAL 25 MG IV (22:42)
[2025-07-27] MEDS: AMPICILLIN 1,000 MG in SODIUM CHLORIDE 0.9% 100 ML 200 MG IV (23:29)
[2025-07-28] MEDS: FENT 2MCG/ML BUPIV 0.125% EPI 200 MCG/100 ML PLAST..BAG 10 MCG EPIDURAL ×3 (00:09→06:32)
[2025-07-28] MEDS: diphenhydrAMINE 50 MG/ML VIAL 25 MG IV (00:09)
[2025-07-28] MEDS: AMPICILLIN 1,000 MG in SODIUM CHLORIDE 0.9% 100 ML 200 MG IV ×2 (03:34→07:31)
[2025-07-28] MEDS: LACTATED RINGERS 1,000 ML 999 ML IV (06:05)
--- NOTE | 2025-07-28 08:03 | PM.OBPNLAB ---
Date/Time Date Patient Seen: 07/28/25 Time Patient Seen: 07:20 Pain Control Pain control: tolerating well and epidural Pelvic Exam Dilation (cm): 10 Effacement (%): 100 station: +2 Amniotic membrane status: Ruptured Comments: copious mec Contractions Monitor mode: Palpation Pitocin rate (mU/min): 18 Contraction frequency (min): 5 Contraction pattern: Irregular Contraction intensity: Mild Status status: Category l Heart Rate Baseline: 145 Monitor Accelerations: Present Monitor Decelerations: Episodic and Late Monitor Variability: Moderate Assessment and Plan Assessment: induction ongoing Plan: continuous present management Comments: 35yo at 40w0d by IUI dating admitted for overnight cervical ripening, indicated IOL at term in setting of suspected macrosomia IOL miso x3 overnight night 1, pitocin started now complete -begin pushing Suspected macrosomia 1h OGTT wnl, borderline polyhydramnios at 29wga resolved, last EFW 4035g on 07/17/25 (38w3d) continue present management, low threshold to convert to per patient request if concerns for obstructed labor patient is consented for vaginal, vaginal operative and delivery as well as transfusion of blood products as medically indicated
[2025-07-28] MEDS: TRANEXAMIC ACID 1,000 MG in SODIUM CHLORIDE 0.9% 100 ML 600 MG IV (08:39)
--- NOTE | 2025-07-28 09:06 | PM.OBPRVD ---
Events: Labor Induction and Meconium Stained Fluid Labor & Delivery Delivery date: 07/28/25 Delivery Time: 08:24 Intrapartal Events: Bleeding Cervical ripening method: per misoprostal protocol Induction method: per pitocin protocol Delivery augmentation: pitocin Delivery monitor: external FHT Route of delivery: L&D Laceration Description: Perineal - 2nd Degree Delivery repair: vicryl Estimated blood loss (mL): 800 Anesthesia Type: Epidural Narrative: The patient progressed to C/C/+2 with pitocin augmentation and epidural anesthesia. After approximately 45 minutes of maternal pushing efforts, the delivered in OA position and restituted CHRIST. The anterior shoulder delivered with gentle downward pressure. The posterior shoulder and rest of body delivered with ease. The cord was doubly clamped and cut after a 30sec delay with the placed on maternal abdomen. The placenta delivered spontaneously and was intact with a 3-vessel cord. There was an area of placenta suspicious for abruption. The fundus was noted to be firm with bimanual massage and pitocin. TXA was given for multiple gushes of clotted blood. Inspection of the cervix, vagina, and perineum was notable for a 2nd laceration. Repair was performed using 3-0 Vicryl in a running, locked fashion. Skin was reapproximated in a running, subcuticular fashion. At the end of the repair, all tissues noted to be hemostatic. All sponges were removed from the vagina. The patient tolerated delivery well and remained in the labor room with the infant at the bedside. Plan for aftercare: Routine care
[2025-07-28] MEDS: ONDANSETRON 4 MG/2 ML INJ IV (09:23)
[2025-07-28] MEDS: ACETAMINOPHEN 325 MG TABLET 650 MG PO ×3 (09:45→21:56)
[2025-07-28] MEDS: DERMOPLAST SPRAY 20% 60 ML 1 SPRAY TOP ×2 (09:45→15:32)
[2025-07-28] MEDS: KETOROLAC 30 MG/ML VIAL IV ×3 (09:46→21:56)
[2025-07-28] MEDS: LACTATED RINGERS 1,000 ML 125 ML IV (12:34)
[2025-07-28 21:56] VITALS: TEMP 36.6
[2025-07-29] MEDS: CALCIUM CARBONATE 500 MG TAB 1000 MG PO (00:18)
[2025-07-29] MEDS: KETOROLAC 30 MG/ML VIAL IV (04:22)
[2025-07-29] MEDS: ACETAMINOPHEN 325 MG TABLET 650 MG PO ×2 (04:23→10:32)
[2025-07-29] MEDS: DOCUSATE 100 MG CAPSULE PO (09:11)
[2025-07-29 09:14] LABS: Add Manual Diff / Slide Review NO; Hematocrit 27.4 % (36-46); Hemoglobin 9.2 g/dL (12.0-16.0); Lymphocytes Absolute Auto 1900 /uL (1100-4500); Mean Corpuscular HGB Conc 33.6 % (30-36); Mean Corpuscular Hemoglobin 30.1 PG (26-34); Mean Corpuscular Volume 89.8 fL (80-100); Platelet Count 168 X10^3/uL (150-400)
--- NOTE | 2025-07-29 09:32 | PM.OBDS.1 ---
Discharge Providers Provider Date of admission: 07/26/25 19:59 Discharge Date: 07/29/25 Primary care physician: Maryann Brown MD Consults: 07/26/25 21:00 Consult to Anesthesiology Urgent Comment: Consulting Provider: Anesthesiologist Reason for consultation: Epidural 07/28/25 09:29 Consult to Carton Inspector Routine Comment: Discharge provider: Melissa Anthony MD Summary Hospital Course Date Patient Seen: 07/29/25 Time Patient Seen: 09:00 Diagnoses: Term , Hospital Course: This is a 35 yo G4now P1 who presented at 39w6d for IOL in setting of suspected macrosomia. complicated by GBS with appropriate treatment. Patient underwent induction with 5 doses cytotec and then pitocin. She had SROM and progressed to complete. Delivery at 40w0d. Vaginal delivery without complications. Routine second degree laceration repaired with suture. EBL 800 cc. Patient received TXA in addition to pitocin. In the period she recovered well. Ambulation without difficulty. Minimal pain. Pumping per patient choice. Will fu at [address] Saenz. Peripartum Data Delivery Method: Natural Vaginal Laceration Description: Perineal - 2nd Degree Status at Discharge Cognitive/behavioral status at discharge: oriented Functional status at discharge: independent ambulation Time Spent with Patient Time attestation: Total time spent providing and/or coordinating discharge services: 30 minutes Time spent: Greater than 30 minutes Objective Labs 07/29/25 09:07 Labs: Laboratory Results - last 24 hr 07/29/25 09:07 WBC 13.3 H RBC 3.05 L Hgb 9.2 L Hct 27.4 L MCV 89.8 MCH 30.1 MCHC 33.6 RDW 14.3 Plt Count 168 Neut % (Auto) 78.2 H Lymph % (Auto) 14.4 L [place] % (Auto) 6.0 Eos % (Auto) 1.2 L Baso % (Auto) 0.2 Neut # (Auto) 45945 H Lymph # (Auto) 1900 [place] # (Auto) 800 Eos # (Auto) 200 Baso # (Auto) 0 Exam Narrative Exam Narrative: NAD, trace edema bilaterally Discharge Plan Discharge Plan Patient Disposition: Home Discharge orders & Medications Prescriptions: New acetaminophen 325 mg Tablet 650 mg PO Q6H PRN (Reason: Pain, Mild (1-3)) Qty: 60 0RF docusate sodium 100 mg Capsule 100 mg PO DAILY Qty: 60 0RF ibuprofen 600 mg Tablet 600 mg PO Q6H Qty: 60 0RF Continued HAD-repe-TW-omega 3 fatty no.1 27-1-300 mg capsule PO famotidine 20 mg tablet 20 mg PO BID Qty: 60 3RF Fish Oil Pearls 300-400 mg capsule 1 cap PO DAILY cholecalciferol (vitamin D3) 25 mcg (1,000 unit) capsule 25 mcg PO DAILY Follow up/Referrals: Maryann Brown MD [Primary Care Provider, Family Practice] Visit Report/Discharge Packet Stand Alone Forms: Patient Portal/API, Stroke Signs & Symptoms Discharge Data Primary Care Provider: Maryann Brown Attending Provider: Mark Kang Admit Date/Time: 07/26/25 19:59
[2025-07-29] MEDS: IBUPROFEN 600 MG TABLET PO (10:32)
[2025-07-29 17:12] VITALS: BP 114/79; PULSE 74; RESP 18; TEMP 36.6
== END 2025-07-29 15:55 | disposition home or self-care (01) | DRG 807 ==
PROVIDERS: Student in an Organized Health Care Education/Training Program; Admitting Provider Obstetrics & Gynecology; Family Provider Family Medicine; PCP Family Medicine; Referring Provider Obstetrics & Gynecology; Visit Provider Obstetrics & Gynecology
DX: O99.824 Streptococcus B carrier state complicating childbirth (principal); Z37.0 Single live birth; Z3A.39 39 weeks gestation of pregnancy; O40.3XX0 Polyhydramnios, third trimester, not applicable or unspecified; O76 Abnormality in fetal heart rate and rhythm complicating labor and delivery; O70.1 Second degree perineal laceration during delivery
CPT/HCPCS: 36415; 59050; 59200; 85025; 86850; 86900; 86901; G0378; A9270; G0379; J0290; J1200; J1885; J2405; J2590; J7050; J7120